=== PATIENT | female | born 1985 | race Caucasian/White ===

== ENCOUNTER 2022-11-29 18:28 | Emergency (ER) | payer OTHER, SELFPAY ==
[2022-11-29 18:41] VITALS: BP 128/58; PULSE 76; RESP 18; TEMP 36.9; O2SAT 98; BMI 23.3
--- NOTE | 2022-11-29 19:00 | ED.GENADULT ---
HPI - General Adult General Time Seen by Provider: 19:00 Date Seen: 11/29/22 Chief complaint: Neck Injury/Pain Stated complaint: Neck swelling, possible Mastitis Time Seen by Provider: 11/29/22 18:31 Source: patient and RN notes reviewed Mode of arrival: ambulatory Limitations: no limitations History of Present Illness HPI narrative: Patient is a 37-year-old female with increasing right neck pain and swelling that started suddenly this afternoon. She took some ibuprofen about 3:00 p.m.. She just suddenly this afternoon had swelling and neck pain. She tried to go to some urgent cares and then a telehealth type appointment. She could not find anyone to see her. She drove herself here to the ER. She is , has had problems with mastitis which is currently controlled. She was on antibiotics and completed them about 10 days ago. She is pumping regularly to help prevent recurrence. She is currently pumping when I come in to see her. She has had no recent fevers but around noon today started to feel a little sweaty and hot. She is breathing fine but states it hurts to swallow. Can open her mouth but states it does hurt in her neck when she opens her mouth. When asked about trauma, she admits about 2 weeks ago she took a significant fall down her stairs while holding her . Her head and neck took the most of the trauma. She did go to her chiropractor afterwards. Related Data Allergies Allergy/AdvReac Type Severity Reaction Status Date / Time calcium carbonate Allergy Verified 11/29/22 19:26 grass pollen Allergy Verified 11/29/22 19:26 prednisone Allergy Verified 11/29/22 19:26 dogs Allergy Uncoded 11/29/22 19:26 Review of Systems Status of ROS: Reports: 6 or more systems reviewed and unremarkable except as noted in History and below PFSH PFS Social History Smoking Status: Never smoker Do you use any of these nicotine containing products: None Second hand tobacco smoke exposure: No How often do you have a drink containing alcohol: never How often do you have six or more drinks on one occasion: Never AUDIT-C Alcohol total score: 0 Non-prescribed substance use: denies use service: No Exam Const: Vital Signs, click to edit/add: Vital Signs - 24 hr 11/29/22 18:41 11/29/22 19:06 11/29/22 19:53 Temperature 98.5 F Pulse Rate [Pulse Oximeter] 76 Respiratory Rate 18 18 Blood Pressure [[facility]] 128/58 L Pulse Oximetry 98 97 100 Oxygen Delivery Me thod Room Air Room Air Documenting provider has reviewed patient's vital signs: yes Common normals: no apparent distress, average body habitus, oriented x3, no limitations, healthy appearing and alert General appearance: cooperative, comfortable, well kempt and well developed HENMT: Common normals: normocephalic, head/scalp atraumatic, hearing grossly normal bilaterally, external nose normal, nasal mucous membranes and turbinates normal, moist oral mucous membranes, oropharynx normal, dentition normal and gingiva normal Head and scalp: normocephalic and atraumatic Nose: external nose normal and nasal mucous membranes and turbinates normal Other: Is able to open her mouth, can see the posterior pharynx but there is some pain associated in the right neck when she does this. Speech is currently normal, no hoarseness. You can see a sense of swelling in the anterior lateral neck overlying the sternocleidomastoid muscle. She is exquisitely tender if I touch this area at all. Seems soft but I cannot say that it is fluctuant. She is exquisitely tender if I try to palpate the area. Eye: Common normals: PERRL, EOMs intact bilaterally, conjunctivae normal and no scleral icterus Conjunctiva: conjunctiva(e) normal Pupil: PERRL Neck & C-Spine: Other: Neck has the right anterior swelling is noted above. She has no midline tenderness of her cervical spine. She is limited in rotating or turning her neck as she states it is extremely painful in the right side of the neck. Chest: Common normals: inspection of chest normal and palpation of chest normal Resp: Common normals: normal respiratory effort, no retractions, no use of accessory muscles and clear to auscultation bilaterally Effort & inspection: able to speak in complete sentences Auscultation: clear to auscultation bilaterally Cardio: Common normals: regular rate, regular rhythm, S1 normal heart sound, S2 normal heart sound, no gallops, no clicks and no murmurs Rate: regular rate Rhythm: regular rhythm Heart sounds: S1 normal and S2 normal Neuro: Common normals: oriented x3 Sensorium/orientation: alert Psych: Appearance: well kempt Course Course Hospital Course: She is requesting some oral Tylenol which I will order for her. We will place an IV, get a stat soft tissue neck CT with IV contrast and a full complement of labs. Unclear with this swelling is but with recent trauma, do need to worry about vascular issues in compromise. Airway is currently patent at this time but she will be monitored closely. Reevaluation(s) Reevaluation #1: Patient is back from CT, did see her while she was getting up to go to the bathroom. She asked me if it looked more swollen. I cannot say that it definitively looks more swollen just looking at her neck. However, patient is telling me it is getting more difficult to swallow. She is still breathing fine. I am going to go see if I can see her CT scan. Time: 19:43 Reevaluation #2: Reviewed with patient and her via phone the findings on the CT scan. I have a reviewed with her that even though there is concerned that this looks like a malignant process, tissue is needed for definitive diagnosis. There is still plenty of uncertainty as to what this is and would have her try to focus on being positive while we attempt to get a definitive diagnosis. She had had her thyroidectomy down at [facility] in [place], found them to be quite helpful. She was thought to have thyroid cancer and it did shirt turner negative. Sounds as if it ended up being a goiter. She is questioned if she really just noticed this swelling today. It sounds as if both her and her really only started to notice significant swelling today. She does admit that she has had chronic neck pain. She feels like her neck is hurt for maybe years. I will attempt to contact ENT at [facility] to see if we can start a process of getting her an outpatient appointment. I have asked our technical support analyst to push her CT images to [facility]. Patient states she does not tolerate narcotics. Vicodin his given her migraines and makes her sick, same with morphine which she got for a version. She has not tried tramadol. My thought is maybe to have her do Tylenol ibuprofen and send her with some tramadol and Zofran. She does have to drive tonight. Time: 20:20 Consultations Consultation #1: Spoke with Francheska Fontana of the RNs in the transfer center. She is going to page out ENT to see if we can make this process happen for the patient. 8:47pm spoke with Dr. Sheets from ENT. She will place referral, head and neck triage happens daily and they will try to get her in [facility] for further evaluation. Time: 20:27 Vital Signs Vital signs: Initial Vital Signs Temperature 98.5 F 11/29/22 18:41 Temperature Source Temporal Artery Scan 11/29/22 18:41 Pulse Rate 76 11/29/22 18:41 Pulse Rhythm Regular 11/29/22 18:41 Respiratory Rate 18 11/29/22 18:41 Blood Pressure 128/58 L 11/29/22 18:41 Blood Pressure Mean 81 11/29/22 18:41 Blood Pressure Position Sitting 11/29/22 18:41 Pulse Oximetry 98 11/29/22 18:41 Oxygen Delivery Method Room Air 11/29/22 18:41 Vital Signs Temperature 98.5 F 11/29/22 18:41 Pulse Rate 76 11/29/22 18:41 Respiratory Rate 18 11/29/22 18:41 Blood Pressure 128/58 L 11/29/22 18:41 Pulse Oximetry 98 11/29/22 18:41 Oxygen Delivery Method Room Air 11/29/22 18:41 Temperature 98.5 F 11/29/22 18:41 Pulse Rate 76 11/29/22 18:41 Respiratory Rate 18 11/29/22 19:53 Blood Pressure 128/58 L 11/29/22 18:41 Pulse Oximetry 100 11/29/22 19:53 Oxygen Delivery Method Room Air 11/29/22 19:53 Medical Decision Making Lab Data Lab results reviewed: Yes I reviewed the patient's lab results Labs: Lab Results 11/29/22 Range/Units 19:11 WBC 10.06 (4.50-11.00) K/uL RBC 4.67 (4.00-5.20) m/uL Hgb 14.3 (12.0-16.0) gm/dL Hct 44.0 (33.0-51.0) % MCV 94 (80-100) fL MCH 31 (26-34) pg MCHC 33 (32-36) gm/dL RDW Coeff of Peter 13.5 (11.5-15.5) % Plt Count 227 (140-440) K/uL Neut % (Auto) 78.1 H (42.0-72.0) % Lymph % (Auto) 10.9 L (20-44) % [place] % (Auto) 7.9 (0.0-11.0) % Eos % (Auto) 1.3 (0.0-7.0) % Baso % (Auto) 0.4 (0.0-3.0) % Neut # (Auto) 7.90 H (1.7-7.0) K/uL Lymph # (Auto) 1.10 (0.90-2.90) K/uL [place] # (Auto) 0.80 (0.00-0.90) K/UL Eos # (Auto) 0.13 (0.00-0.50) K/uL Baso # (Auto) 0.04 (0.00-0.30) K/uL INR 0.78 L (0.91-1.10) APTT 31 (23-33) Seconds D-Dimer Quant (PE/DVT) < 0.27 (0.00-0.50) ug/ml Sodium 137 (135-149) mmol/L Potassium 3.2 L (3.6-5.1) mmol/L Chloride 104 (96-114) mmol/L Carbon Dioxide 28 (20-32) mmol/L BUN 8 (5-24) mg/dL Creatinine 0.5 (0.5-1.5) mg/dL Estimated Creat Clear 162.56 Estimated GFR 125 ml/min Glucose 102 (60-115) mg/dL Lactate 1.8 (0.5-1.9) mmol/L Calcium 8.8 (8.4-10.6) mg/dL Total Bilirubin 0.5 (0.1-1.5) mg/dL AST 23 (12-35) U/L ALT 21 (4-35) U/L Alkaline Phosphatase 83 (40-150) U/L C-Reactive Protein < 0.5 L (0.5-1.0) mg/dL Total Protein 7.3 (6.0-8.3) g/dL Albumin 4.2 (3.3-5.0) g/dL Imaging Data CT soft tissue neck with IV contrast: Attestation: I have reviewed the pertinent imaging results. Radiologist's impression: Patient: KANDY LOPEZ Facility:?[facility] Patient ID:?[id number] Site Patient ID:?[id number]. Site :?[id number] Study:?CT ST Neck W/78CC [id number]/26/2023 7:51:11 PM Ordering Physician:Ashlee Paz Final Report: INDICATION: Right-sided neck swelling. TECHNIQUE: CT images acquired through the neck following intravenous contrast. COMPARISON: None. FINDINGS: Motion artifact degrades image quality at the level of the hyoid bone and larynx. Predominantly cystic, lobulated lesion or conglomerate lesions within II-IV of the right cervical neck deep to the right sternocleidomastoid muscle measuring 7.5 x 2.3 x 1.6 cm (CC/AP/TR). The lesion demonstrates thin peripheral enhancement as well as enhancing septations. The nasopharynx, oropharynx, hypopharynx, and larynx are widely patent and without enhancing lesions. No retropharyngeal edema or epiglottic thickening. No enhancing lesions in the oral cavity or floor of mouth. The parotid and submandibular glands are unremarkable. Borderline enlarged bilateral level IIa lymph nodes, nonspecific. Postsurgical changes of thyroidectomy. Limited images through the brain are without pathologic intracranial enhancement. The visualized paranasal sinuses and mastoid air cells are clear. No aggressive osseous lesions. No concerning opacities in the visualized lungs. IMPRESSION: 1. Predominantly cystic, lobulated lesion or conglomerate lesions within level II-IV of the right cervical neck demonstrating thin peripheral enhancement and septations. Findings are concerning for a neoplastic process, such as metastatic lymphadenopathy. Direct tissue sampling is recommended for further evaluation. 2. Borderline enlarged bilateral level IIa lymph nodes are nonspecific, though demonstrate elongated morphology and are most likely reactive. 3. Postsurgical changes of thyroidectomy. Critical Care Time Critical Care Time Critical Care Time: No Discharge Plan Discharge Clinical Impression: Acute neck pain, Mass of right side of neck Patient Disposition: Home, Self-Care Condition: Stable Instructions: Acute Neck Pain (ED) Additional Instructions: Take Tylenol 1000 mg 3 times a day baseline for pain. Can supplement with ibuprofen per bottle directions as needed. Due to breast-feeding, you cannot take tramadol. Thus, did write for oxycodone which is a different narcotic which can be used with breast-feeding. Would try a half of a tablet if you have severe pain, premedicate with the Zofran in our before you take the oxycodone. Do not take the oxycodone on an empty stomach. See if you might tolerate the pain management with the narcotic oxycodone with small low doses. [facility] is supposed to be calling you this week for an appointment. Dr. Sheets was the resident I spoke with, she stated if you had not heard from [facility] by Wednesday or Wednesday, to call them. You would ask to speak to the ENT spares scheduler through the main [facility] number which is [phone]. Activity Level: Activity as Tolerated Discharge Diet: Regular Stand Alone Forms: [employer] Info Instructions
--- NOTE | 2022-11-29 19:05 | CRLHL7_ITS ---
For Patients: As a result of the Century Cures Act, medical imaging exams and procedure reports are released immediately into your electronic medical record. You may view this report before your referring provider. If you have questions, please contact your health care provider. INDICATION: Right-sided neck swelling. TECHNIQUE: CT images acquired through the neck following intravenous contrast. COMPARISON: None. FINDINGS: Motion artifact degrades image quality at the level of the hyoid bone and larynx. Predominantly cystic, lobulated lesion or conglomerate lesions within II-IV of the right cervical neck deep to the right sternocleidomastoid muscle measuring 7.5 x 2.3 x 1.6 cm (CC/AP/TR). The lesion demonstrates thin peripheral enhancement as well as enhancing septations. The nasopharynx, oropharynx, hypopharynx, and larynx are widely patent and without enhancing lesions. No retropharyngeal edema or epiglottic thickening. No enhancing lesions in the oral cavity or floor of mouth. The parotid and submandibular glands are unremarkable. Borderline enlarged bilateral level IIa lymph nodes, nonspecific. Postsurgical changes of thyroidectomy. Limited images through the brain are without pathologic intracranial enhancement. The visualized paranasal sinuses and mastoid air cells are clear. No aggressive osseous lesions. No concerning opacities in the visualized lungs. IMPRESSION: 1. Predominantly cystic, lobulated lesion or conglomerate lesions within level II-IV of the right cervical neck demonstrating thin peripheral enhancement and septations. Findings are concerning for a neoplastic process, such as metastatic lymphadenopathy. Direct tissue sampling is recommended for further evaluation. 2. Borderline enlarged bilateral level IIa lymph nodes are nonspecific, though demonstrate elongated morphology and are most likely reactive. 3. Postsurgical changes of thyroidectomy. Please note that all CT scans at this facility use dose modulation, iterative reconstruction, and/or weight-based dosing when appropriate to reduce radiation dose to as low as reasonably achievable. Dictated by Michael Vail MD @ 11/29/2022 8:10:56 PM (Electronically Signed)
[2022-11-29 19:06] VITALS: O2SAT 97
[2022-11-29 19:17] LABS: Lactate* 1.8 mmol/L (0.5-1.9)
[2022-11-29 19:20] LABS: Basophils Absolute Auto 0.04 K/uL (0.00-0.30); Basophils Percent Auto 0.4 % (0.0-3.0); Eosinophils Absolute Auto 0.13 K/uL (0.00-0.50); Eosinophils Percent Auto 1.3 % (0.0-7.0); Hemoglobin* 14.3 gm/dL (12.0-16.0); Immature Granulocytes Abs Auto 0.14 K/uL (0.00-0.30); Immature Granulocytes Pct Auto 1.4 %; Lymphocytes Percent Auto 10.9 % (20-44); Mean Corpuscular HGB Conc 33 gm/dL (32-36); Mean Corpuscular Hemoglobin 31 pg (26-34); Mean Corpuscular Volume 94 fL (80-100); Monocytes Percent Auto 7.9 % (0.0-11.0); Neutrophils Percent Auto 78.1 % (42.0-72.0); Platelet Count* 227 K/uL (140-440); RDW Coefficient of Variation % 13.5 % (11.5-15.5); Red Blood Count 4.67 m/uL (4.00-5.20); White Blood Count* 10.06 K/uL (4.50-11.00)
[2022-11-29 19:25] LABS: Slide Review Reflex No
[2022-11-29 19:34] LABS: Albumin* 4.2 g/dL (3.3-5.0); Chloride* 104 mmol/L (96-114); Sodium* 137 mmol/L (135-149)
[2022-11-29 19:35] LABS: Potassium* 3.2 mmol/L (3.6-5.1)
[2022-11-29 19:37] LABS: Aspartate Amino Transferase* 23 U/L (12-35); Bilirubin Total* 0.5 mg/dL (0.1-1.5); Carbon Dioxide* 28 mmol/L (20-32); Creatinine* 0.5 mg/dL (0.5-1.5); Est. Creatinine Clearance* 162.56; Estimated Glomerular Filt Rate 125 ml/min; Total Protein* 7.3 g/dL (6.0-8.3)
[2022-11-29 19:38] LABS: Alanine Aminotransferase* 21 U/L (4-35); Alkaline Phosphatase* 83 U/L (40-150); Blood Urea Nitrogen* 8 mg/dL (5-24); Calcium* 8.8 mg/dL (8.4-10.6); Glucose* 102 mg/dL (60-115)
[2022-11-29 19:40] LABS: INR 0.78 (0.91-1.10); Prothrombin Time 11.4 Seconds
[2022-11-29 19:41] LABS: C Reactive Protein* < 0.5 mg/dL (0.5-1.0); Partial Thromboplastin Time* 31 Seconds (23-33)
[2022-11-29 19:45] LABS: D Dimer Quantitative* < 0.27 ug/ml (0.00-0.50)
[2022-11-29 19:53] VITALS: RESP 18; O2SAT 100
== END 2022-11-29 21:21 | disposition home or self-care (01) ==
PROVIDERS: Emergency Provider Family Medicine
DX: M54.2 Cervicalgia (principal); R22.1 Localized swelling, mass and lump, neck
CPT/HCPCS: 36415; 70491; 80053; 83605; 85025; 85379; 85610; 85730; 86140; 94761; 99284; 99285; Q9967

== ENCOUNTER 2022-12-06 10:35 | Emergency (ER) | payer OTHER, SELFPAY ==
[2022-12-06] VITALS (10 sets, daily range): BP systolic 104–121; BP diastolic 52–71; PULSE 60–75; RESP 18; TEMP 36.2; O2SAT 96–97; BMI 23.2
--- NOTE | 2022-12-06 11:15 | CRLHL7_ITS ---
For Patients: As a result of the Century Cures Act, medical imaging exams and procedure reports are released immediately into your electronic medical record. You may view this report before your referring provider. If you have questions, please contact your health care provider. INDICATION: Neck swelling, night sweats, evaluate for lymphoma TECHNIQUE: Contrast-enhanced CT of the chest, abdomen and pelvis was obtained after administration of 76 cc Isovue cyst 370 IV. Coronal and sagittal reformats were obtained on an independent workstation. COMPARISON: None. FINDINGS: Chest: Thyroid: Surgically absent. Mediastinum: Small hiatal hernia. The central airways are patent. Triangular soft tissue density in the anterior mediastinum with no contour abnormality or mass effect most compatible with benign residual thymic tissue (503/35). Lymph Nodes: No significant axillary, mediastinal, or hilar lymphadenopathy. Lungs: Right lower lobe solid pulmonary nodule measuring 3 mm (504/48). Minimal dependent atelectasis. Heart/Pericardium: Normal heart size. No pericardial effusion. No filling defects in the central pulmonary vasculature. No thoracic aortic aneurysm. Pleural spaces: No pneumothorax or pleural effusion. Chest wall: Bilateral dense breast tissue, normal. Abdomen/Pelvis: Liver: Non-cirrhotic morphology. No suspicious lesion. Gallbladder: Unremarkable. Spleen: Normal in size measuring 11 cm. Adrenal glands: Unremarkable. Kidneys: Symmetric enhancement with no hydronephrosis or nephrolithiasis bilaterally. Pancreas: Unremarkable. Lymph nodes: No retroperitoneal, mesenteric, inguinal, or pelvic adenopathy by CT criteria. Bowel: Stomach is decompressed, limiting evaluation, but appears grossly normal. Small large bowel is normal in caliber, without obstruction. Normal appendix (507/97). No pneumatosis, pneumoperitoneum or portal venous gas. Above-average colonic stool burden. Vascular structures: No abdominal aortic aneurysm. No atherosclerotic calcifications. Proximal visceral vessels are patent. Patent portal, hepatic, splenic and bilateral renal veins. Circumaortic left renal vein, normal variant. Peritoneum: Trace pelvic ascites, likely physiologic. Abdominal Wall: Unremarkable. Urinary bladder: Limited evaluation due to underdistention. No gross pathology. Reproductive structures: Unremarkable for patient`s age. MSK: No acute fractures. No aggressive appearing lytic or blastic osseous lesion. IMPRESSION: 1. No suspicious findings in the chest, abdomen or pelvis to suggest malignancy. Specifically, no enlarged lymph nodes by size criteria. 2. Spleen is normal in size measuring 11 cm. 3. Right lower lobe solid pulmonary nodule measuring 3 mm. -Fleischner guidelines: If patient is low risk, no additional follow-up needed. If patient is high risk, consider repeat CT chest in 12 months. 4. Above average colonic stool burden which may correspond to constipation. Please note that all CT scans at this facility use dose modulation, iterative reconstruction, and/or weight-based dosing when appropriate to reduce radiation dose to as low as reasonably achievable. Dictated by Daquan Davison MD @ 12/06/2022 12:46:33 PM (Electronically Signed)
--- NOTE | 2022-12-06 11:16 | CRLHL7_ITS ---
For Patients: As a result of the Century Cures Act, medical imaging exams and procedure reports are released immediately into your electronic medical record. You may view this report before your referring provider. If you have questions, please contact your health care provider. CT HEAD DATE: 12/06/2022 CLINICAL HISTORY: Patient with head and neck swelling. TECHNIQUE: Standard CT scanning of the head was performed. COMPARISON: None. FINDINGS: There is no intracranial hemorrhage. The cortez matter-white matter differentiation is intact. The size of the ventricular system is normal for age. There is no mass effect or midline shift. The calvarium is unremarkable. The orbits are unremarkable. The paranasal sinuses are unremarkable. The mastoid air cells are unremarkable. The soft tissues are unremarkable. IMPRESSION: Normal head CT. Please note that all CT scans at this facility use dose modulation, iterative reconstruction, and/or weight-based dosing when appropriate to reduce radiation dose to as low as reasonably achievable. Dictated by: Anatoliy Conte MD @ 12/06/2022 12:36:29 (Electronically Signed)
--- NOTE | 2022-12-06 11:18 | ED.GENADULT ---
HPI - General Adult General Chief complaint: Headache/Migraine Stated complaint: Intense headache Time Seen by Provider: 12/06/22 10:49 History of Present Illness HPI narrative: This 37-year-old female comes in reporting severe headache. She was seen several days ago because of swelling in her neck. CT imaging showed a cystic structure that could be infectious or sign of lymphoma. She did get transferred to a clinic appointment in the [facility] with Ear Nose and Throat. They did do an ultrasound but no biopsy is yet done and is scheduled for next week. The patient is reporting a history of migraines but states that this headache feels different. She is breast-feeding and has 2 young children at home. She is fearful about what these reports have indicated and what her symptoms are about. She does have a history of a thyroidectomy 10 years ago. She states that she measured a borderline fever at 100.4? F. She does report drenching night sweats. Related Data Home Medications Medication Instructions Recorded Confirmed levothyroxine 137 mcg capsule 137 mcg PO DAILY 12/06/22 12/06/22 (Tirosint) levothyroxine 50 mcg capsule 50 mcg PO DAILY 12/06/22 12/06/22 (Tirosint) oxycodone 5 mg tablet 5 mg PO QID PRN 12/06/22 12/06/22 sertraline 100 mg tablet 100 mg PO DAILY 12/06/22 12/06/22 sertraline 50 mg tablet 50 mg PO DAILY 12/06/22 12/06/22 Previous Rx's Medication Instructions Recorded ketorolac 10 mg tablet 10 mg PO Q8H 5 days #15 tabs 12/06/22 oxycodone 5 mg capsule 5 mg PO Q6H PRN pain #10 caps 12/06/22 Allergies Allergy/AdvReac Type Severity Reaction Status Date / Time calcium carbonate Allergy Verified 12/06/22 11:51 grass pollen Allergy Verified 12/06/22 11:51 prednisone Allergy Verified 12/06/22 11:51 dogs Allergy Uncoded 12/06/22 11:51 Review of Systems Status of ROS: Reports: 10 or more systems reviewed and unremarkable except as noted in History and below Narrative: Constitutional: No fevers, no weight gain or loss. Eyes: No discharge. No vision changes. HENT: No congestion, no sore throat, no ear pain. Swelling in the right side of her neck. Cardiovascular: No chest pain, no palpitations. Respiratory: No shortness of breath, no wheezes, no cough. Gastrointestinal: No abdominal pain, no vomiting, no diarrhea. Genitourinary: No dysuria, no hematuria. Musculoskeletal: Normal range of motion. Skin: No rashes, no pruritis. Neurological: No dizziness, weakness, sensory change, speech change. Endo/Heme/Allergies: No bruising or bleeding. No polydipsia. Pysch: no suicidality, no anxiety, no insomnia. All other systems reviewed and are negative. PFSH PFS Social History Smoking Status: Never smoker Do you use any of these nicotine containing products: None Second hand tobacco smoke exposure: No How often do you have a drink containing alcohol: never How often do you have six or more drinks on one occasion: Never AUDIT-C Alcohol total score: 0 Non-prescribed substance use: denies use service: No Exam Narrative: Exam Narrative: Constitutional: Well-developed, well-nourished . HEENT: Normocephalic, atraumatic. Neck: Normal range of motion. Swelling in the right side of her neck from a cystic structure identified in a recent CT scan. No palpable lymph nodes. Heart: Regular. No murmurs. Normal rate. Intact distal pulses. Lungs: Clear to auscultation. No chest discomfort. No wheezes, rhonchi, or rales. Abdomen: Normal bowel sounds. Nontender. No rebound tenderness. Genitalia: Deferred. Back: No midline tenderness. Normal range of motion. Extremities: Normal range of motion. No injury. Skin: Intact. No rash. Warm. No erythema or pallor. Neurologic: No altered sensation. No weakness. Alert and oriented. Psychiatric: No suicidality. No anxiety or depression. No insomnia. Nursing notes and vitals signs are reviewed. Const: Vital Signs, click to edit/add: Vital Signs - 24 hr 12/06/22 10:42 Temperature 97.1 F L Pulse Rate [Right Pulse Oximeter] 71 Respiratory Rate 18 Blood Pressure [Ri ght Upper Arm] 104/52 L Pulse Oximetry 97 Oxygen Delivery Me thod Room Air Course Vital Signs Vital signs: Initial Vital Signs Temperature 97.1 F L 12/06/22 10:42 Temperature Source Temporal Artery Scan 12/06/22 10:42 Pulse Rate 71 12/06/22 10:42 Respiratory Rate 18 12/06/22 10:42 Blood Pressure 104/52 L 12/06/22 10:42 Blood Pressure Mean 69 12/06/22 10:42 Blood Pressure Position Sitting 12/06/22 10:42 Pulse Oximetry 97 12/06/22 10:42 Oxygen Delivery Method Room Air 12/06/22 10:42 Vital Signs Temperature 97.1 F L 12/06/22 10:42 Pulse Rate 71 12/06/22 10:42 Respiratory Rate 18 12/06/22 10:42 Blood Pressure 104/52 L 12/06/22 10:42 Pulse Oximetry 97 12/06/22 10:42 Oxygen Delivery Method Room Air 12/06/22 10:42 Temperature 97.1 F L 12/06/22 10:42 Pulse Rate 71 12/06/22 10:42 Respiratory Rate 18 12/06/22 10:42 Blood Pressure 104/52 L 12/06/22 10:42 Pulse Oximetry 97 12/06/22 10:42 Oxygen Delivery Method Room Air 12/06/22 10:42 Medical Decision Making [facility] Narrative Medical decision making narrative: This patient comes in reporting headache and has had swelling in the right side of her neck for the past fiber 6 days. She was seen here and did have a follow-up appointment with Ear Nose and Throat in a [place] facility. This process is ongoing with regard to evaluating the source and cause of this swelling in the right side of her neck. She was told that it could be due to infection or lymphoma. She comes in reporting significant headache and is concerned about the unknown is a with regard to imaging results. I did discuss lab and imaging options today with her and she did have CT scan of her head and contrast enhanced imaging of her chest, abdomen, and pelvis. There are no findings of abnormality in the studies. In particular there is no sign of lymphadenopathy or lymphoma. This was reassuring to the patient. She did receive IV dose of Dilaudid, and Zofran which brought relief to her symptoms. She is okay to be discharged home to continue current plans to workup this swelling in the right side of her neck. I did provide a prescription for Toradol and a few tablets of oxycodone. She understands we will not refill narcotics in the ED. Lab Data Labs: Lab Results 12/06/22 Range/Units 11:40 WBC 5.70 (4.50-11.00) K/uL RBC 4.62 (4.00-5.20) m/uL Hgb 14.1 (12.0-16.0) gm/dL Hct 43.3 (33.0-51.0) % MCV 94 (80-100) fL MCH 31 (26-34) pg MCHC 33 (32-36) gm/dL RDW Coeff of Peter 13.6 (11.5-15.5) % Plt Count 261 (140-440) K/uL Neut % (Auto) 80.3 H (42.0-72.0) % Lymph % (Auto) 10.7 L (20-44) % [place] % (Auto) 7.7 (0.0-11.0) % Eos % (Auto) 0.7 (0.0-7.0) % Baso % (Auto) 0.2 (0.0-3.0) % Neut # (Auto) 4.60 (1.7-7.0) K/uL Lymph # (Auto) 0.60 L (0.90-2.90) K/uL [place] # (Auto) 0.40 (0.00-0.90) K/UL Eos # (Auto) 0.04 (0.00-0.50) K/uL Baso # (Auto) 0.01 (0.00-0.30) K/uL Sodium 136 (135-149) mmol/L Potassium 3.8 (3.6-5.1) mmol/L Chloride 103 (96-114) mmol/L Carbon Dioxide 27 (20-32) mmol/L BUN 13 (5-24) mg/dL Creatinine 0.5 (0.5-1.5) mg/dL Estimated Creat Clear 156.91 Estimated GFR 125 ml/min Glucose 92 (60-115) mg/dL Calcium 8.4 (8.4-10.6) mg/dL Imaging Data CT Chest, Abd, Pelvis: Radiologist's impression: 1. No suspicious findings in the chest, abdomen or pelvis to suggest malignancy. Specifically, no enlarged lymph nodes by size criteria. 2. Spleen is normal in size measuring 11 cm. 3. Right lower lobe solid pulmonary nodule measuring 3 mm. -Fleischner guidelines: If patient is low risk, no additional follow-up needed. If patient is high risk, consider repeat CT chest in 12 months. 4. Above average colonic stool burden which may correspond to constipation. CT scan - head: Radiologist's impression: Normal head CT. Discharge Plan Discharge Clinical Impression: Mass of right side of neck, Headache Patient Disposition: Home, Self-Care Condition: Improved Additional Instructions: Continue current plans. Use medications as needed and directed. Follow up with MD as scheduled or return if worsening. Prescriptions: New ketorolac 10 mg tablet 10 mg PO Q8H 5 Days Qty: 15 0RF oxycodone 5 mg capsule 5 mg PO Q6H PRN (Reason: pain) Qty: 10 0RF No Action sertraline 100 mg tablet 100 mg PO DAILY sertraline 50 mg tablet 50 mg PO DAILY oxycodone 5 mg tablet 5 mg PO QID PRN levothyroxine [Tirosint] 137 mcg capsule 137 mcg PO DAILY levothyroxine [Tirosint] 50 mcg capsule 50 mcg PO DAILY Follow Up/Referrals: Provider,Not a Local [Primary Care Provider] - Stand Alone Forms: [email or web address] Info Instructions
[2022-12-06 11:46] LABS: Basophils Absolute Auto 0.01 K/uL (0.00-0.30); Basophils Percent Auto 0.2 % (0.0-3.0); Eosinophils Absolute Auto 0.04 K/uL (0.00-0.50); Eosinophils Percent Auto 0.7 % (0.0-7.0); Hematocrit 43.3 % (33.0-51.0); Hemoglobin* 14.1 gm/dL (12.0-16.0); Immature Granulocytes Abs Auto 0.02 K/uL (0.00-0.30); Immature Granulocytes Pct Auto 0.4 %; Lymphocytes Percent Auto 10.7 % (20-44); Mean Corpuscular HGB Conc 33 gm/dL (32-36); Mean Corpuscular Hemoglobin 31 pg (26-34); Mean Corpuscular Volume 94 fL (80-100); Monocytes Percent Auto 7.7 % (0.0-11.0); Neutrophils Percent Auto 80.3 % (42.0-72.0); Platelet Count* 261 K/uL (140-440); RDW Coefficient of Variation % 13.6 % (11.5-15.5); Red Blood Count 4.62 m/uL (4.00-5.20)
[2022-12-06 11:56] LABS: Slide Review Reflex No
[2022-12-06 12:01] LABS: Chloride* 103 mmol/L (96-114); Sodium* 136 mmol/L (135-149)
[2022-12-06 12:02] LABS: Potassium* 3.8 mmol/L (3.6-5.1)
[2022-12-06 12:04] LABS: Creatinine* 0.5 mg/dL (0.5-1.5); Est. Creatinine Clearance* 156.91; Estimated Glomerular Filt Rate 125 ml/min
[2022-12-06] MEDS: ONDANSETRON 2 MG/ML inj 4 MG IVP (12:04)
[2022-12-06] MEDS: HYDROmorphone 0.5 mg/0.5 ml inj IVP (12:04)
[2022-12-06 12:05] LABS: Blood Urea Nitrogen* 13 mg/dL (5-24); Calcium* 8.4 mg/dL (8.4-10.6); Carbon Dioxide* 27 mmol/L (20-32); Glucose* 92 mg/dL (60-115)
== END 2022-12-06 13:35 | disposition home or self-care (01) ==
PROVIDERS: Emergency Provider Emergency Medicine Emergency Medical Services
DX: M54.2 Cervicalgia (principal); R51.9 Headache, unspecified
CPT/HCPCS: 36415; 70450; 71260; 74177; 80048; 85025; 94761; 96374; 96375; 99284; J1170; J2405; Q9967